=== PATIENT | male | born 1990 | race Caucasian/White ===

== ENCOUNTER 2019-06-10 08:06 | Emergency (ER) | payer BC, SELFPAY ==
--- NOTE | 2019-06-10 08:14 | ED.GENADULT ---
HPI - General Adult General Chief complaint: Skin/Abscess/Foreign Body Stated complaint: rash Time Seen by Provider: 06/10/19 08:38 Source: patient Mode of arrival: ambulatory Limitations: no limitations History of Present Illness HPI narrative: 28-year-old male patient presents to the psychiatric with complaints of a rash for the past 2 to 3 days. Patient states he did work in the yard last week but does not remember coming in any contact with poison chuy that he can recall. Patient states he has had poison chuy before. Patient states that he noticed a rash developing and is gotten worse. Patient does have a rash to the left forearm and states that he noticed that it is starting to develop to the left flank area along with a rash to bilateral knees and bilateral upper thighs. Patient states the rash is itchy. Denies any shortness of breath, swelling to the lips tongue or face. Denies any chest pain. Patient denies taking anything for his symptoms. Patient states he has tried taking some Epson salt baths which he felt like made it worse. Related Data Allergies Allergy/AdvReac Type Severity Reaction Status Date / Time No Known Allergies Allergy Verified 06/10/19 08:29 Review of Systems Review of Systems: Narrative: CONSTITUTIONAL: Denies fever, chills, or sweats. EYES: Denies visual changes, redness, or discharge. ENT: Denies rhinorrhea, congestion, sore throat, or otalgia. CARDIOVASCULAR: Denies chest pain, palpitations, or edema. RESPIRATORY: Denies cough or dyspnea. GASTROINTESTINAL: Denies abdominal pain, nausea, vomiting, or diarrhea. GENITOURINARY: Denies dysuria or hematuria. SKIN: Positive rash with itching. MUSCULOSKELETAL: Denies back pain, joint pain, or myalgia. NEUROLOGIC: Denies headache, numbness, or weakness. PSYCHIATRIC: Denies anxiety or depression. ON LICENSE OF [facility] Family History Family History Mother Family history of mental disorder Social History Social History Alcohol intake: current Comments At the time of my signature I agree with nursing past medical history, surgical, social, and family history. There is no relevant family history pertinent to the presenting complaint. Exam Narrative: Exam Narrative: GENERAL: Well-appearing, well-nourished, and in no acute distress. HEAD: Normocephalic, atraumatic. EYES: PERRLA and EOMI. ENT: Nares clear, no rhinorrhea or epistaxis. Mucous membranes moist. NECK: Supple. No lymphadenopathy. No stridor noted on auscultation CHEST: Clear to auscultation. No respiratory distress. HEART: Regular rate and rhythm. No murmur heard. Normal peripheral pulses. ABDOMEN: Soft, nontender, nondistended, normal active bowel sounds. EXTREMITIES: Normal range of motion. No edema. SKIN: Patient has flat macules and papules noted to the left forearm that does appear slightly blotchy with some satellite areas. There is also a similar looking rash to bilateral kneecaps and the left flank area. No rash noted to the face. No swelling of the lips or cheeks. NEURO: No focal deficits. Alert and oriented x3. Course Vital Signs Vital signs: Vital Signs Temperature 36.7 C 06/10/19 08:20 Pulse Rate 86 06/10/19 08:20 Respiratory Rate 20 06/10/19 08:20 Blood Pressure 136/81 06/10/19 08:20 Pulse Oximetry 99 06/10/19 08:20 Temperature 36.7 C 06/10/19 08:20 Pulse Rate 86 06/10/19 08:20 Respiratory Rate 20 06/10/19 08:20 Blood Pressure 136/81 06/10/19 08:20 Pulse Oximetry 99 06/10/19 08:20 Vital signs reviewed. The patient has been informed that they may have pre-hypertension or Hypertension based on a BP reading in the department. I recommend that the patient call the primary care provider listed on their discharge instructions or a physician of their choice this week to arrange follow up for further evaluation of possible pre-hypertension or Hypert
[2019-06-10 08:20] VITALS: BP 136/81; PULSE 86; RESP 20; TEMP 36.7; O2SAT 99
== END 2019-06-10 08:47 | disposition home or self-care (01) ==
PROVIDERS: Emergency Provider Nurse Practitioner Family
DX: L23.7 Allergic contact dermatitis due to plants, except food (principal)
CPT/HCPCS: 99213; G0463